=== PATIENT | female | born 1985 | race Caucasian/White ===

== ENCOUNTER 2017-01-21 12:31 | Emergency (ER) | payer OTHER ==
[~2017-01-21] VITALS: Ht 160 cm; Wt 56.7 kg
[2017-01-21 12:37] VITALS: BP 120/74
[2017-01-21] MEDS ORDERED: MOBIC15 MG PO (13:14)
[2017-01-21] MEDS ORDERED: PENICILLIN V P500 MG PO (13:14)
== END 2017-01-21 13:54 | disposition home or self-care (01) ==
LOC: ER 12:31
DX: S02.5XXA Fracture of tooth (traumatic), initial encounter for closed fracture (principal); F17.210 Nicotine dependence, cigarettes, uncomplicated; K02.9 Dental caries, unspecified; K04.01 Reversible pulpitis; Z90.49 Acquired absence of other specified parts of digestive tract; Z90.89 Acquired absence of other organs; Z88.6 Allergy status to analgesic agent; X58.XXXA Exposure to other specified factors, initial encounter; Y93.89 Activity, other specified; Y92.89 Other specified places as the place of occurrence of the external cause; Y99.8 Other external cause status